=== PATIENT | male | born 1975 ===

== ENCOUNTER 2021-02-21 15:31 | Inpatient (IN) | payer SELFPAY ==
--- NOTE | 2021-02-21 15:45 | Event Note ---
Date: 02/21/21 Received phone call from primary care doctor: Dr. Mercado. Patient is a 45-year-old gentleman, with a history of body mass index of 50, hypertension on multiple agents, being sent to the emergency room for evaluation by his physician for chronic wound, history of uncontrolled blood pressure, concern for cellulitis and possible superinfection.
[2021-02-21] MEDS ORDERED: CLINDAMYCIN 600 MG/50 mL 600 MG/50 ML BAG IV ONE (16:51)
[2021-02-21 17:23] LABS: Basophils # (Auto) 0.1 K/mm3 (0.0-0.1); Basophils % (Auto) 1.7 % (0.0-1.8); Eosinophils # (Auto) 0.2 K/mm3 (0.0-0.4); Hematocrit 48.2 % (35.5-45.6); Hemoglobin 15.4 gm/dl (11.8-15.2); Lymphocytes # (Auto) 1.1 K/mm3 (1.2-5.4); Lymphocytes % (Auto) 13.2 % (13.4-35.0); Mean Corpuscular HGB Conc 32 % (32-34); Mean Corpuscular Volume 88 fl (84-94); Monocytes # (Auto) 0.7 K/mm3 (0.0-0.8); Monocytes % (Auto) 8.7 % (0.0-7.3); Platelet Count 309 K/mm3 (140-440); Red Blood Count 5.47 M/mm3 (3.65-5.03)
[2021-02-21 17:41] LABS: Alanine Aminotransferase 27 units/L (7-56); Albumin 4.2 g/dL (3.9-5); Blood Urea Nitrogen 18 mg/dL (9-20); Calcium 9.1 mg/dL (8.4-10.2); Hemolysis Index 5
[2021-02-21 17:50] LABS: BUN/Creatinine Ratio 36
[2021-02-21] MEDS ORDERED: cefTRIAXone/NS 1 GM/50 ML 1 GM/50 ML BAG IV ONE ×2 (18:02→22:15)
--- NOTE | 2021-02-21 18:09 | Emergency Department Report ---
ED General Adult HPI - General Chief complaint: Wound/Laceration Stated complaint: ANTIBIOTICS Time Seen by Provider: 02/21/21 17:58 Source: patient Mode of arrival: Ambulatory Limitations: No Limitations - History of Present Illness Initial comments: Patient is 45 years old morbidly obese male with history of hypertension. Patient was sent to the emergency room by his primary care physician for evaluation of right lower leg wound and cellulitis. Patient stated that his wound started approximately 1 month ago when he has a small laceration. He st ated that he put peroxide on it hoping that will help. He stated that approximately 1 week ago when he went to his primary doctor he started him on Augmentin however there is no improvement. Patient stated that he noticed for the last few days that the area around the wounds became more tender and red. Patient denied any fever or chills. No nausea or vomiting. - Related Data Allergies Allergy/AdvReac Type Severity Reaction Status Date / Time No Known Allergies Allergy Verified 02/21/21 15:35 ED Review of Systems ROS: Stated complaint: ANTIBIOTICS Other details as noted in HPI Comment: All other systems reviewed and negative Constitutional: denies: chills, fever Respiratory: denies: cough, shortness of breath, SOB with exertion, SOB at rest, wheezing Cardiovascular: denies: chest pain, palpitations Gastrointestinal: denies: abdominal pain, nausea, vomiting, diarrhea, co nstipation, hematochezia Musculoskeletal: denies: back pain Skin: lesions Neurological: denies: headache, weakness, numbness, paresthesias, confusion ED Physical Exam - General Limitations: No Limitations General appearance: alert, in no apparent distress - Head Head exam: Present: atraumatic, normocephalic, normal inspection - Eye Eye exam: Present: normal appearance - ENT ENT exam: Present: normal exam, normal orophraynx, mucous membranes moist - Neck Neck exam: Present: normal inspection, full ROM. Absent: tenderness, meningismus, lymphadenopathy, thyromegaly - Respiratory Respiratory exam: Present: normal lung sounds bilaterally - Cardiovascular Cardiovascular Exam: Present: regular rate, normal rhythm, normal heart sounds - GI/Abdominal GI/Abdominal exam: Present: soft, normal bowel sounds. Absent: distended, tenderness, guarding, rebound, rigid, organomegaly, mass, bruit, pulsatile mass, hernia - Extremities Exam Extremities exam: Present: other (Right lower leg wound approximately 5 x 5 cm with surrounding area of cellulitis.) - Back Exam Back exam: Present: normal inspection. Absent: CVA tenderness (R), CVA tenderness (L) - Neurological Exam Neurological exam: Present: alert, oriented X3, CN II-XII intact - Psychiatric Psychiatric exam: Present: normal mood - Skin Skin exam: Present: erythema ED Course Vital Signs 02/21/21 15:33 Temperature 98.2 F Pulse Rate 90 Respiratory 18 Rate Blood Pressure 149/83 [Left] O2 Sat by Pulse 100 Oximetry ED Medical Decision Making - Lab Data Result diagrams: 02/21/21 16:57 02/21/21 16:57 - Radiology Data Radiology results: report reviewed - Medical Decision Making Patient is 45 years old morbidly obese male with history of hypertension. Patient was sent to the emergency room by his primary care physician for evaluation of right lower leg wound and cellulitis. Patient stated that his wound started approximately 1 month ago when he has a small laceration. He stated that he put peroxide on it hoping that will help. He stated that approximately 1 week ago when he went to his primary doctor he started him on Augmentin however there is no improvement. Patient stated that he noticed for the last few days that the area around the wounds became more tender and red. Patient denied any fever or chills. No nausea or vomiting. On examination there is no clinical evidence of necrotizing fasciitis. Labs reviewed and is unremarkable. Patient started on clindamycin and Rocephin. I discussed the patient with Dr. Palomino, he agreed to admit the patient to medical service for further management. Critical care attestation.: If time is entered above; I have spent that time in minutes in the direct care of this critically ill patient, excluding procedure time. ED Disposition Clinical Impression: Cellulitis of right leg Disposition: ADMITTED INPATIENT Is pt being admited?: Yes Condition: Stable Referrals: PRIMARY CARE, [Primary Care Provider] - 3-5 Days
--- NOTE | 2021-02-21 18:13 | XRay Report ---
Right foreleg 4 views INDICATION: Severe right foreleg pain and swelling IMPRESSION: There is prominent subcutaneous edema throughout the right foreleg. The tibia and fibula appears grossly intact without evidence of osseous destruction. Signer Name: Joseluis Villagomez MD Signed: 02/21/2021 6:09 PM Workstation Name: [id number]
[2021-02-21 19:00] LABS: Erythrocyte Sedimentation Rate 80 mm/Hr (0-20)
[2021-02-22] MEDS ORDERED: ONDANSETRON 4 MG/2 ML INJ IV PRN (06:35)
[2021-02-22] MEDS ORDERED: ACETAMINOPHEN 325 MG TAB PO PRN (06:35)
[2021-02-22] MEDS ORDERED: HYDROmorphone 1 MG/1 ML INJ IV PRN (06:35)
[2021-02-22] MEDS ORDERED: METOCLOPRAMIDE 10 MG/2 ML INJ IV PRN (06:35)
--- NOTE | 2021-02-22 06:39 | History and Physical Report ---
History of Present Illness Date of examination: 02/21/21 Date of admission: 02/22/21 00:20 History of present illness: Patient is 45 years old morbidly obese male with history of hypertension. Patient was sent to the emergency room by his primary care physician for evaluation of right lower leg wound and cellulitis. Patient stated that his wound started approximately 1 month ago when he has a small laceration. He stated that he put peroxide on it hoping that will help. He stated that approximately 1 week ago when he went to his primary doctor he started him on Augmentin however there is no improvement. Patient stated that he noticed for the last few days that the area around the wounds became more tender and red. Patient denied any fever or chills. No nausea or vomiting. - Related Data Allergies Allergy/AdvReac Type Severity Reaction Status Date / Time No Known Allergies Allergy Verified 02/21/21 15:35 Review of Systems ROS: Stated complaint: ANTIBIOTICS Other details as noted in HPI Comment: All other systems reviewed and negative Constitutional: denies: chills, fever Respiratory: denies: cough, shortness of breath, SOB with exertion, SOB at rest, wheezing Cardiovascular: denies: chest pain, palpitations Gastrointestinal: denies: abdominal pain, nausea, vomiting, diarrhea, constipation, hematochezia Musculoskeletal: denies: back pain Skin: lesions Neurological: denies: headache, weakness, numbness, paresthesias, confusion Medications and Allergies Allergies Allergy/AdvReac Type Severity Reaction Status Date / Time No Known Allergies Allergy Verified 02/21/21 15:35 Home Medications Medication Instructions Recorded Confirmed Last Taken Type Labetalol HCl [Labetalol 300mg TAB] 300 mg PO BID 02/22/21 02/22/21 02/21/21 21:00 History 300 Lasix TAB 40 mg PO QDAY 02/22/21 02/22/21 02/21/21 21:00 History 40 NIFEdipine 60 mg PO QDAY 02/22/21 02/22/21 02/21/21 21:00 History 60 Potassium 20 mg PO QDAY 02/22/21 02/22/21 02/21/21 21:00 History 20 Exam - Constitutional Vitals: Temp Pulse Resp BP Pulse Ox 98.2 F 93 H 16 147/80 95 02/21/21 15:33 02/22/21 05:56 02/22/21 05:56 02/22/21 05:56 02/22/21 05:56 Results - Labs CBC & Chem 7: 02/21/21 16:57 02/21/21 16:57 Labs: Laboratory Last Values WBC 8.5 K/mm3 (4.5-11.0) 02/21/21 16:57 RBC 5.47 M/mm3 (3.65-5.03) H 02/21/21 16:57 Hgb 15.4 gm/dl (11.8-15.2) H 02/21/21 16:57 Hct 48.2 % (35.5-45.6) H 02/21/21 16:57 MCV 88 fl (84-94) 02/21/21 16:57 MCH 28 pg (28-32) 02/21/21 16:57 MCHC 32 % (32-34) 02/21/21 16:57 RDW 14.0 % (13.2-15.2) 02/21/21 16:57 Plt Count 309 K/mm3 (140-440) 02/21/21 16:57 Lymph % (Auto) 13.2 % (13.4-35.0) L 02/21/21 16:57 Mayes % (Auto) 8.7 % (0.0-7.3) H 02/21/21 16:57 Eos % (Auto) 2.0 % (0.0-4.3) 02/21/21 16:57 Baso % (Auto) 1.7 % (0.0-1.8) 02/21/21 16:57 Lymph # (Auto) 1.1 K/mm3 (1.2-5.4) L 02/21/21 16:57 Mayes # (Auto) 0.7 K/mm3 (0.0-0.8) 02/21/21 16:57 Eos # (Auto) 0.2 K/mm3 (0.0-0.4) 02/21/21 16:57 Baso # (Auto) 0.1 K/mm3 (0.0-0.1) 02/21/21 16:57 Seg Neutrophils % 74.4 % (40.0-70.0) H 02/21/21 16:57 Seg Neutrophils # 6.3 K/mm3 (1.8-7.7) 02/21/21 16:57 ESR 80 mm/Hr (0-20) 02/21/21 16:57 Sodium 136 mmol/L (137-145) L 02/21/21 16:57 Potassium 3.9 mmol/L (3.6-5.0) 02/21/21 16:57 Chloride 96.8 mmol/L (98-107) L 02/21/21 16:57 Carbon Dioxide 25 mmol/L (22-30) 02/21/21 16:57 Anion Gap 18 mmol/L 02/21/21 16:57 BUN 18 mg/dL (9-20) 02/21/21 16:57 Creatinine 0.5 mg/dL (0.8-1.3) L 02/21/21 16:57 Estimated GFR > 60 ml/min 02/21/21 16:57 BUN/Creatinine Ratio 36 % 02/21/21 16:57 Glucose 105 mg/dL (75-100) H 02/21/21 16:57 Calcium 9.1 mg/dL (8.4-10.2) 02/21/21 16:57 Total Bilirubin 0.40 mg/dL (0.1-1.2) 02/21/21 16:57 AST 35 units/L (5-40) 02/21/21 16:57 ALT 27 units/L (7-56) 02/21/21 16:57 Alkaline Phosphatase 88 units/L (35-129) 02/21/21 16:57 Total Protein 7.8 g/dL (6.3-8.2) 02/21/21 16:57 Albumin 4.2 g/dL (3.9-5) 02/21/21 16:57 Albumin/Globulin Ratio 1.2 % 02/21/21 16:57 Assessment and Plan Advance Directives: Yes (Full code) VTE prophylaxis?: Chemical Plan of care discussed with patient/family: Yes - Patient Problems (1) Cellulitis of right leg Current Visit: Yes Status: Acute Plan to address problem: Patient started on IV Unasyn and vancomycin
[2021-02-22] MEDS: AMPICILLIN/SULBACTA 3GM/100ML 3 GM/100 ML BAG IV SCH ×3 (07:00→18:18)
[2021-02-22] MEDS ORDERED: VANCOMYCIN PHARMACY TO DOSE IV SCH (07:00)
[2021-02-22] MEDS: VANCOMYCIN 2,000 MG in SODIUM CHLORIDE 0.9% 500 ML 500 ML IV SCH ×2 (08:29→20:00)
[2021-02-22] MEDS: FAMOTIDINE 20 MG TAB PO SCH ×2 (10:27→22:00)
[2021-02-22] MEDS: HEPARIN 5,000 UNIT/1 ML VIAL SUB-Q SCH ×2 (10:27→22:00)
[2021-02-22] MEDS: oxyCODONE /ACETAMINOPHEN 5-325MG TAB PO PRN (18:21)
[2021-02-23] MEDS: oxyCODONE /ACETAMINOPHEN 5-325MG TAB PO PRN ×4 (01:35→23:38)
[2021-02-23 06:25] LABS: Basophils % (Auto) 0.5 % (0.0-1.8); Eosinophils # (Auto) 0.2 K/mm3 (0.0-0.4); Eosinophils % (Auto) 2.1 % (0.0-4.3); Hematocrit 46.6 % (35.5-45.6); Hemoglobin 15.1 gm/dl (11.8-15.2); Lymphocytes # (Auto) 1.2 K/mm3 (1.2-5.4); Mean Corpuscular HGB Conc 33 % (32-34); Mean Corpuscular Volume 88 fl (84-94); Monocytes # (Auto) 0.8 K/mm3 (0.0-0.8); Monocytes % (Auto) 9.7 % (0.0-7.3); Platelet Count 262 K/mm3 (140-440); Red Blood Count 5.31 M/mm3 (3.65-5.03); Red Cell Distribution Width 13.6 % (13.2-15.2)
[2021-02-23 06:46] LABS: Alanine Aminotransferase 21 units/L (7-56); Albumin 3.6 g/dL (3.9-5); BUN/Creatinine Ratio 14; Blood Urea Nitrogen 7 mg/dL (9-20); Calcium 8.9 mg/dL (8.4-10.2); Hemolysis Index 5
[2021-02-23] MEDS: AMPICILLIN/SULBACTA 3GM/100ML 3 GM/100 ML BAG IV SCH ×5 (07:44→23:30)
--- NOTE | 2021-02-23 07:50 | Progress Note ---
Assessment and Plan - Patient Problems (1) Cellulitis of right leg Current Visit: Yes Status: Acute Plan to address problem: Patient started on IV Unasyn and vancomycin Subjective Date of service: 02/22/21 Objective - Constitutional Vitals: Vital Signs - 12hr 02/22/21 02/23/21 02/23/21 22:33 00:16 01:35 Temperature 99.1 F Pulse Rate 88 Respiratory 20 20 Rate Blood Pressure 153/92 O2 Sat by Pulse 95 97 Oximetry 02/23/21 02/23/21 02:35 05:08 Temperature 99.0 F Pulse Rate 95 H Respiratory 18 20 Rate Blood Pressure 150/97 O2 Sat by Pulse 94 Oximetry General appearance: Present: no acute distress, well-nourished - EENT Eyes: PERRL, EOM intact ENT: hearing intact, clear oral mucosa Ears: bilateral: normal - Neck Neck: supple, normal ROM - Respiratory Respiratory effort: normal Respiratory: bilateral: CTA - Breasts Breasts: normal - Cardiovascular Rhythm: regular Heart Sounds: Present: S1 & S2. Absent: gallop, rub Extremities: pulses intact, No edema, normal color, Full ROM - Gastrointestinal General gastrointestinal: Present: soft, non-tender, non-distended, normal bowel sounds - Genitourinary Male genitourinary: normal - Integumentary Integumentary: clear, warm, dry - Musculoskeletal Musculoskeletal: 1, strength equal bilaterally - Neurologic Neurologic: moves all extremities - Psychiatric Psychiatric: memory intact, appropriate mood/affect, intact judgment & insight - Labs CBC & Chem 7: 02/23/21 05:47 02/23/21 05:47 Labs: Abnormal lab results 02/23/21 02/23/21 Range/Units 05:47 05:47 RBC 5.31 H (3.65-5.03) M/mm3 Hct 46.6 H (35.5-45.6) % [place] % (Auto) 9.7 H (0.0-7.3) % Seg Neutrophils % 73.7 H (40.0-70.0) % Potassium 3.4 L (3.6-5.0) mmol/L BUN 7 L (9-20) mg/dL Creatinine 0.5 L (0.8-1.3) mg/dL Glucose 105 H (75-100) mg/dL Albumin 3.6 L (3.9-5) g/dL
[2021-02-23] MEDS: FAMOTIDINE 20 MG TAB PO SCH ×2 (09:50→23:35)
[2021-02-23] MEDS: VANCOMYCIN 2,000 MG in SODIUM CHLORIDE 0.9% 500 ML 500 ML IV SCH ×2 (09:50→23:34)
[2021-02-23] MEDS: HEPARIN 5,000 UNIT/1 ML VIAL SUB-Q SCH ×2 (09:51→23:35)
[2021-02-23] MEDS: SODIUM CHLORIDE 0.9% 1000 ML 1,000 ML IV SCH (09:51)
--- NOTE | 2021-02-23 21:49 | Progress Note ---
Assessment and Plan - Patient Problems (1) Cellulitis of right leg Current Visit: Yes Status: Acute Plan to address problem: Patient started on IV Unasyn and vancomycin Subjective Date of service: 02/23/21 Objective - Constitutional Vitals: Vital Signs - 12hr 02/23/21 02/23/21 02/23/21 10:58 11:33 17:27 Temperature 97.7 F 99.1 F Pulse Rate 91 H 88 Respiratory 18 18 19 Rate Blood Pressure 156/98 144/64 O2 Sat by Pulse 92 93 Oximetry 02/23/21 17:59 Temperature Pulse Rate Respiratory 19 Rate Blood Pressure O2 Sat by Pulse Oximetry General appearance: Present: no acute distress, well-nourished - EENT Eyes: PERRL, EOM intact ENT: hearing intact, clear oral mucosa Ears: bilateral: normal - Neck Neck: supple, normal ROM - Respiratory Respiratory effort: normal Respiratory: bilateral: CTA - Breasts Breasts: normal - Cardiovascular Heart rate: 78 Rhythm: regular Heart Sounds: Present: S1 & S2. Absent: gallop, rub Extremities: pulses intact, No edema, normal color, Full ROM - Gastrointestinal General gastrointestinal: Present: soft, non-tender, non-distended, normal bowel sounds - Genitourinary Male genitourinary: normal - Integumentary Integumentary: clear, warm, dry - Musculoskeletal Musculoskeletal: 1, strength equal bilaterally - Neurologic Neurologic: moves all extremities - Psychiatric Psychiatric: memory intact, appropriate mood/affect, intact judgment & insight - Labs CBC & Chem 7: 02/23/21 05:47 02/23/21 05:47 Labs: Abnormal lab results 02/23/21 02/23/21 Range/Units 05:47 05:47 RBC 5.31 H (3.65-5.03) M/mm3 Hct 46.6 H (35.5-45.6) % [place] % (Auto) 9.7 H (0.0-7.3) % Seg Neutrophils % 73.7 H (40.0-70.0) % Potassium 3.4 L (3.6-5.0) mmol/L BUN 7 L (9-20) mg/dL Creatinine 0.5 L (0.8-1.3) mg/dL Glucose 105 H (75-100) mg/dL Albumin 3.6 L (3.9-5) g/dL
[2021-02-24] MEDS: AMPICILLIN/SULBACTA 3GM/100ML 3 GM/100 ML BAG IV SCH ×4 (06:06→23:19)
[2021-02-24 06:18] LABS: Basophils % (Auto) 0.5 % (0.0-1.8); Eosinophils # (Auto) 0.2 K/mm3 (0.0-0.4); Eosinophils % (Auto) 2.7 % (0.0-4.3); Hematocrit 46.3 % (35.5-45.6); Hemoglobin 14.9 gm/dl (11.8-15.2); Lymphocytes # (Auto) 1.2 K/mm3 (1.2-5.4); Lymphocytes % (Auto) 15.3 % (13.4-35.0); Mean Corpuscular HGB Conc 32 % (32-34); Mean Corpuscular Volume 89 fl (84-94); Monocytes # (Auto) 0.7 K/mm3 (0.0-0.8); Monocytes % (Auto) 8.4 % (0.0-7.3); Platelet Count 269 K/mm3 (140-440); Red Blood Count 5.21 M/mm3 (3.65-5.03); Red Cell Distribution Width 13.5 % (13.2-15.2)
[2021-02-24 06:42] LABS: Alanine Aminotransferase 20 units/L (7-56); Albumin 3.7 g/dL (3.9-5); Blood Urea Nitrogen 8 mg/dL (9-20); Calcium 8.6 mg/dL (8.4-10.2); Hemolysis Index 5
[2021-02-24 06:43] LABS: BUN/Creatinine Ratio 20
[2021-02-24] MEDS: oxyCODONE /ACETAMINOPHEN 5-325MG TAB PO PRN ×3 (08:00→20:36)
[2021-02-24] MEDS: FAMOTIDINE 20 MG TAB PO SCH ×3 (08:00→21:07)
[2021-02-24] MEDS: HEPARIN 5,000 UNIT/1 ML VIAL SUB-Q SCH ×2 (08:00→11:40)
[2021-02-24] MEDS: VANCOMYCIN 2,000 MG in SODIUM CHLORIDE 0.9% 500 ML 500 ML IV SCH ×2 (10:41→20:56)
[2021-02-24] MEDS: SODIUM CHLORIDE 0.9% 1000 ML 1,000 ML IV SCH (20:36)
[2021-02-25] MEDS: AMPICILLIN/SULBACTA 3GM/100ML 3 GM/100 ML BAG IV SCH ×2 (05:32→11:36)
--- NOTE | 2021-02-25 07:40 | Progress Note ---
Assessment and Plan - Patient Problems (1) Cellulitis of right leg Current Visit: Yes Status: Acute Plan to address problem: Patient started on IV Unasyn and vancomycin (2) Osteomyelitis of foot, right, acute Current Visit: Yes Status: Acute Plan to address problem: Home IV antibiotics were arranged and patient was discharged No podiatric services available here Subjective Date of service: 02/24/21 Objective - Constitutional Vitals: Vital Signs - 12hr 02/24/21 02/25/21 02/25/21 22:44 02:35 05:32 Temperature 98.7 F 99.9 F H Pulse Rate 95 H 101 H Respiratory 16 20 20 Rate Blood Pressure 172/78 171/96 O2 Sat by Pulse 95 95 92 Oximetry General appearance: Present: no acute distress, well-nourished - EENT Eyes: PERRL, EOM intact ENT: hearing intact, clear oral mucosa Ears: bilateral: normal - Neck Neck: supple, normal ROM - Respiratory Respiratory effort: normal Respiratory: bilateral: CTA - Breasts Breasts: normal - Cardiovascular Rhythm: regular Heart Sounds: Present: S1 & S2. Absent: gallop, rub Extremities: pulses intact, No edema, normal color, Full ROM - Gastrointestinal General gastrointestinal: Present: soft, non-tender, non-distended, normal bowel sounds - Genitourinary Male genitourinary: normal - Integumentary Integumentary: clear, warm, dry - Musculoskeletal Musculoskeletal: 1, strength equal bilaterally - Neurologic Neurologic: moves all extremities - Psychiatric Psychiatric: memory intact, appropriate mood/affect, intact judgment & insight - Labs CBC & Chem 7: 02/24/21 05:37 02/24/21 05:37 Labs: Abnormal lab results 02/25/21 Range/Units 00:32 Vancomycin Trough 28.2 H (5.0-20.0) ug/mL
[2021-02-25] MEDS: oxyCODONE /ACETAMINOPHEN 5-325MG TAB PO PRN (07:56)
[2021-02-25] MEDS: VANCOMYCIN 2,000 MG in SODIUM CHLORIDE 0.9% 500 ML 500 ML IV SCH (08:02)
[2021-02-25] MEDS: FAMOTIDINE 20 MG TAB PO SCH (09:45)
[2021-02-25 12:23] VITALS: BP 136/71
--- NOTE | 2021-02-25 14:13 | Discharge Summary ---
Providers - Providers Date of Admission: 02/22/21 00:20 Attending physician: ONEL HANCOCK 02/22/21 18:24 Consult to Wound/ET Nurse [CONS] Routine Reason For Exam: wound eval Primary care physician: MOLD TECHNICIAN Hospitalization Condition: Stable Disposition: 30 STILL A PATIENT Exam - Constitutional Vitals: Temp Pulse Resp BP Pulse Ox 98.3 F 91 H 18 136/71 92 02/25/21 12:12 02/25/21 12:12 02/25/21 12:12 02/25/21 12:12 02/25/21 12:12 Plan Follow up with: PRIMARY CARE, [Primary Care Provider] - 3-5 Days Prescriptions: Sulfamethoxazole/Trimethoprim [Bactrim DS TAB] 1 each PO BID #20 tablet Oxycodone HCl/Acetaminophen [Percocet 10/325 mg] 1 each PO Q6HR PRN #24 tablet PRN Reason: Pain Other Discharge Orders: Home Health Care (Amb) Location: None Selected
== END 2021-02-25 17:40 | disposition home health service (06) | DRG 603 ==
LOC: ED 15:31 → 3A 02-22 00:20
PROVIDERS: ADMIT Internal Medicine; ATTEND Internal Medicine
DX: L03.115 Cellulitis of right lower limb (principal); M86.8X7 Other osteomyelitis, ankle and foot; I10 Essential (primary) hypertension
CPT/HCPCS: 36415; 80053; 80202; 83036; 85025; 85652; 87076; 87116; 87186; G0378; J7502; Q0162; J0295; J0696; J1644; J3370; J7030; J7040

== ENCOUNTER 2021-05-09 08:42 | Outpatient (CLI) | payer OTHER ==
[2021-05-09] MEDS ORDERED: LIDOCAINE (4%) 40 MG/ML TOPICAL SOLN 50 ML BOTTLE TP ONE (09:06)
== END 2021-05-09 08:43 | disposition home or self-care (01) ==
LOC: WOUND 08:42
PROVIDERS: ATTEND Surgery
DX: I87.311 Chronic venous hypertension (idiopathic) with ulcer of right lower extremity (principal); L97.812 Non-pressure chronic ulcer of other part of right lower leg with fat layer exposed; S81.801A Unspecified open wound, right lower leg, initial encounter; Z79.899 Other long term (current) drug therapy; W22.03XA Walked into furniture, initial encounter; Y93.89 Activity, other specified; Y92.89 Other specified places as the place of occurrence of the external cause; Y99.8 Other external cause status
CPT/HCPCS: 11042; 11045; G0463; 99214

== ENCOUNTER 2021-05-14 13:05 | Outpatient (CLI) | payer OTHER ==
--- NOTE | 2021-05-14 16:20 | Vascular Lab Report ---
DUPLEX DOPPLER LOWER EXTREMITY VEINS, RIGHT INDICATION / CLINICAL INFORMATION: I87.311 CHRONIC VENOUS HYPERTENSION. TECHNIQUE: Duplex doppler imaging was performed through the veins of the right lower extremity using venous compression and other maneuvers. Great and small saphenous veins were evaluated in the supine and upright/reverse Trendelenburg positions. Valsalva technique was used to evaluate for venous insuf ficiency. COMPARISON: None available. FINDINGS: RIGHT LOWER EXTREMITY DVT (Y/N): No. RIGHT LOWER EXTREMITY: Great Saphenous Vein: Size (supine) & Reflux (Y/N) - Prox: 7 mm. Reflux = Y - Mid: 3 mm. Reflux = N - Dist: 3 mm. Reflux = N Small Saphenous Vein: Not visualized. Additional findings: Mild venous insufficiency is noted within the right external iliac vein and comm on femoral vein. IMPRESSION: 1. No sonographic evidence for DVT. 2. Mild venous insufficiency within the proximal right greater saphenous vein, external iliac vein, a nd common femoral vein. Scribed by: Sara Nava RDMS, RVT Scribed: 05/14/2021 2:00 PM I have reviewed the images, agree with this report, and edited this report as needed. Signer Name: Joseluis Villagomez MD Signed: 05/14/2021 4:15 PM Workstation Name: [id number]
== END 2021-05-14 13:06 | disposition home or self-care (01) ==
LOC: VAS 13:05
PROVIDERS: ATTEND Surgery
DX: I87.311 Chronic venous hypertension (idiopathic) with ulcer of right lower extremity (principal)

== ENCOUNTER 2021-05-16 13:20 | Outpatient (CLI) | payer OTHER ==
[2021-05-16] MEDS ORDERED: LIDOCAINE (4%) 40 MG/ML TOPICAL SOLN 50 ML BOTTLE TP ONE (13:26)
== END 2021-05-16 13:21 | disposition home or self-care (01) ==
LOC: WOUND 13:20
PROVIDERS: ATTEND Surgery
DX: I87.311 Chronic venous hypertension (idiopathic) with ulcer of right lower extremity (principal); L97.812 Non-pressure chronic ulcer of other part of right lower leg with fat layer exposed; S81.801D Unspecified open wound, right lower leg, subsequent encounter; W22.03XD Walked into furniture, subsequent encounter; Z79.899 Other long term (current) drug therapy

== ENCOUNTER 2021-05-23 13:03 | Outpatient (CLI) | payer OTHER | END 2021-05-23 13:04 | disposition home or self-care (01) | LOC: WOUND 13:03 | PROVIDERS: ATTEND Surgery | DX: I87.311 Chronic venous hypertension (idiopathic) with ulcer of right lower extremity (principal); L97.812 Non-pressure chronic ulcer of other part of right lower leg with fat layer exposed; S81.801D Unspecified open wound, right lower leg, subsequent encounter; W22.03XD Walked into furniture, subsequent encounter; Z79.899 Other long term (current) drug therapy ==